=== PATIENT | male | born 1935 | race Caucasian/White ===

== ENCOUNTER 2016-07-22 16:33 | Emergency (ER) | payer MEDICARE, OTHER ==
[2016-07-22] MEDS ORDERED: LIDOCAINE 2% URO-JET 5 ML SYRINGE UR STA (16:57)
[2016-07-22] MEDS ORDERED: LIDOCAINE 2% URO-JET 5 ML SYRINGE UR ONE (16:59)
[2016-07-22] MEDS ORDERED: CIPROFLOXACIN 250 MG TABLET PO STA (17:58)
[2016-07-22] MEDS ORDERED: CIPROFLOXACIN 250 MG TABLET PO ONE (18:10)
== END 2016-07-22 18:32 | disposition home or self-care (01) ==
DX: T83.518A Infection and inflammatory reaction due to other urinary catheter, initial encounter (principal); Y84.6 Urinary catheterization as the cause of abnormal reaction of the patient, or of later complication, without mention of misadventure at the time of the procedure; Z90.79 Acquired absence of other genital organ(s)
CPT/HCPCS: 51702; 51798; 81001; 87077; 87086; 87181; 99283; A9270

== ENCOUNTER 2016-11-29 15:49 | Outpatient (CLI) | payer MEDICARE, OTHER | END 2016-11-29 15:50 | disposition home or self-care (01) | LOC: LAB.R 15:49 | PROVIDERS: ATTEND Family Medicine | DX: N39.0 Urinary tract infection, site not specified (principal) | CPT/HCPCS: 87086 ==

== ENCOUNTER 2017-07-15 08:00 | Outpatient (CLI) | payer MEDICARE, OTHER ==
[2017-07-15 13:22] LABS: CALCIUM 8.9 mg/dL (8.5-10.3); CREATININE 1.6 mg/dL (0.6-1.2)
== END 2017-07-15 08:01 | disposition home or self-care (01) ==
LOC: LAB.WCP 08:00
PROVIDERS: ATTEND Family Medicine
DX: N18.3 Chronic kidney disease, stage 3 (moderate) (principal)
CPT/HCPCS: 36415; 80048

== ENCOUNTER 2017-07-22 14:00 | Outpatient (CLI) | payer MEDICARE, OTHER ==
[2017-07-22 18:50] LABS: BILIRUBIN,URINE NEGATIVE (NEGATIVE); CLARITY,URINE CLEAR (CLEAR); GLUCOSE, URINE (UA) NEGATIVE (NEGATIVE); KETONES,URINE (UA) NEGATIVE (NEGATIVE); LEUKOCYTE ESTERASE, URINE NEGATIVE (NEGATIVE); NITRITE,URINE NEGATIVE (NEGATIVE); OCCULT BLOOD,URINE NEGATIVE (NEGATIVE); PROTEIN,URINE NEGATIVE (NEGATIVE); UROBILINOGEN,URINE 0.2 (NORMAL) E.U./dL (NORMAL)
[2017-07-22 19:09] LABS: BACTERIA,URINE None Seen /HPF (None Seen); RBC,URINE None Seen /HPF (0-5); SQUAMOUS EPITHELIAL CELL,UR NONE SEEN (<= Few)
== END 2017-07-22 14:01 ==
LOC: LAB.WCP 14:00
PROVIDERS: ATTEND Family Medicine
DX: N18.3 Chronic kidney disease, stage 3 (moderate) (principal)
CPT/HCPCS: 81001

== ENCOUNTER 2017-10-09 21:48 | Outpatient (CLI) | payer MEDICARE, OTHER ==
--- NOTE | 2017-10-09 23:57 | Ultrasound Preliminary Report ---
Exam: US DUPLEX EXT VEINS BILATERAL IMPRESSION: 1. No evidence for deep venous thrombosis bilaterally. 2. There are apparent 2 heterogeneous fluid collections about the left calf within the subcutaneous t issues measuring up to 7.8 cm. These may represent hematoma in the appropriate clinical setting. Plea se correlate clinically. RADIA The call report notification system was initiated by Dr. Gary Cobos at 23:46 hrs on 10/09/17. The above findings were discussed with Dr Zeus Quiroz Dr by Dr. Gary Cobos at 23:56 hrs on . SITE ID: [id number]
--- NOTE | 2017-10-10 00:01 | Ultrasound Report ---
EXAM: BILATERAL LOWER EXTREMITY VENOUS ULTRASOUND EXAM DATE: 10/09/2017 10:53 PM. CLINICAL HISTORY: Calf pain, left. COMPARISON: None. TECHNIQUE: Real-time sonographic vascular imaging was performed by the site reliability engineer through the lower extremities utilizing both color-flow and Doppler spectral analysis. Multiple outside sales account representative static i mages were saved for review. FINDINGS: Right: Common Femoral Vein (CFV): No evidence of thrombus. CFV-GSV Junction: No evidence of thrombus. Profunda Femoral Vein (PFV): No evidence of thrombus. Femoral Vein (FV) Prox: No evidence of thrombus. Femoral Vein (FV) Mid: No evidence of thrombus. Femoral Vein (FV) Dist: No evidence of thrombus. Popliteal Vein: No evidence of thrombus. Posterior Tibial Veins: No evidence of thrombus. Peroneal Veins: No evidence of thrombus. Left: Common Femoral Vein (CFV): No evidence of thrombus. CFV-GSV Junction: No evidence of thrombus. Profunda Femoral Vein (PFV): No evidence of thrombus. Femoral Vein (FV) Prox: No evidence of thrombus. Femoral Vein (FV) Mid: No evidence of thrombus. Femoral Vein (FV) Dist: No evidence of thrombus. Popliteal Vein: No evidence of thrombus. Posterior Tibial Veins: No evidence of thrombus. Peroneal Veins: No evidence of thrombus. Other: There is a heterogeneous collection within the medial aspect of the left distal lower extremit y, at the calf level, measuring 7.8 x 1.6 cm. Additional heterogeneous 3.9 x 2.4 x 1.4 cm proximal me dial left calf collection. IMPRESSION: 1. No evidence for deep venous thrombosis bilaterally. 2. There are apparent 2 heterogeneous fluid collections about the left calf within the subcutaneous t issues measuring up to 7.8 cm. These may represent hematoma in the appropriate clinical setting. Plea se correlate clinically. RADIA The call report notification system was initiated by Dr. Gary Cobos at 23:46 hrs on 10/09/17. The above findings were discussed with Dr Zeus Quiroz Dr by Dr. Gary Cobos at 23:56 hrs on . Referring Provider Line: [phone] SITE ID: [id number]
== END 2017-10-09 21:49 | disposition home or self-care (01) ==
LOC: DI 21:48
PROVIDERS: ATTEND Family Medicine
DX: M79.662 Pain in left lower leg (principal)
CPT/HCPCS: 93970

== ENCOUNTER 2018-05-27 08:00 | Outpatient (CLI) | payer MEDICARE, OTHER ==
[2018-05-27 20:36] LABS: CALCIUM 9.4 mg/dL (8.5-10.3); CREATININE 1.4 mg/dL (0.6-1.2)
== END 2018-05-27 23:59 | disposition home or self-care (01) ==
LOC: LAB.WCP 08:00
PROVIDERS: ATTEND Family Medicine
DX: N18.3 Chronic kidney disease, stage 3 (moderate) (principal)
CPT/HCPCS: 36415; 80048

== ENCOUNTER 2019-01-12 08:00 | Outpatient (CLI) | payer MEDICARE, OTHER ==
[2019-01-12 12:38] LABS: BASOPHILS # (AUTO) 0.1 10^3/uL (0.0-0.1); EOSINOPHILS # (AUTO) 0.2 10^3/uL (0.0-0.7); EOSINOPHILS % (AUTO) 3.3 %; HGB - HEMOGLOBIN 13.9 g/dL (14.0-18.0); LYMPHOCYTES % (AUTO) 19.8 %; MEAN CORPUSCULAR HEMOGLOBIN 30.9 pg (27.0-31.0); MEAN CORPUSCULAR HGB CONC 32.1 g/dL (32.0-36.0); MEAN CORPUSCULAR VOLUME 96.2 fL (80.0-94.0); MONOCYTES # (AUTO) 0.5 10^3/uL (0.0-1.0); MONOCYTES % (AUTO) 10.1 %; NEUTROPHILS # (AUTO) 3.2 10^3/uL (1.5-6.6); NEUTROPHILS % (AUTO) 65.2 %; PLT - PLATELET COUNT 176 10^3/uL (130-450); RED CELL DISTRIBUTION WIDTH 14.4 % (12.0-15.0); WHITE BLOOD COUNT 4.8 x10^3/uL (4.8-10.8)
[2019-01-12 13:13] LABS: ALBUMIN 3.9 g/dL (3.2-5.5); ALBUMIN/GLOBULIN RATIO 1.8 (1.0-2.2); ALKALINE PHOSPHATASE 48 IU/L (42-121); ALT ALANINE AMINOTRANSFERASE 13 IU/L (10-60); AST ASPARTATE AMINOTRANSFERASE 22 IU/L (10-42); BILIRUBIN,TOTAL 1.1 mg/dL (0.2-1.0); BUN - BLOOD UREA NITROGEN 21 mg/dL (6-20); CARBON DIOXIDE - CO2 23 mmol/L (21-32); CHLORIDE 101 mmol/L (101-111); CHOL/HDL RATIO 3.6 (<5.0); CHOLESTEROL 230 mg/dL; CREATININE 1.4 mg/dL (0.6-1.2); GFR - MDRD 49 (>89); GLUCOSE 87 mg/dL (70-100); HDL CHOLESTEROL 64 mg/dL; LDL CHOLESTEROL,CALCULATED 153 mg/dL; LDL/HDL RATIO 2.4 (<3.6); SODIUM 137 mmol/L (135-145); TOTAL PROTEIN 6.1 g/dL (6.7-8.2); VLDL CHOLESTEROL 13 mg/dL
[2019-01-12 13:28] LABS: PLATELET ESTIMATE, MANUAL NORMAL (130-450,000) (NORMAL); PLATELET MORPHOLOGY RARE GIANT PLATELETS (NORMAL); RBC MORPHOLOGY (MULTIPLE) NORMAL APPEARANCE (NORMAL)
== END 2019-01-12 23:59 ==
LOC: LAB.WCP 08:00
PROVIDERS: ATTEND Family Medicine
DX: N18.3 Chronic kidney disease, stage 3 (moderate) (principal); E78.5 Hyperlipidemia, unspecified
CPT/HCPCS: 36415; 80053; 80061; 83721; 85025

== ENCOUNTER 2022-03-04 10:03 | Outpatient (CLI) | payer MEDICARE, OTHER | END 2022-03-04 10:04 | disposition EMS.NT | LOC: EMS 10:03 | DX: S00.501A Unspecified superficial injury of lip, initial encounter (principal); W18.30XA Fall on same level, unspecified, initial encounter; Y92.39 Other specified sports and athletic area as the place of occurrence of the external cause ==

== ENCOUNTER 2024-01-18 14:25 | Emergency (ER) | payer MEDICARE, OTHER ==
[2024-01-18] MEDS: SODIUM CHLORIDE 0.9% 1,000 ML IV STA (15:30)
[2024-01-18 16:19] LABS: BASOPHILS # (AUTO) 0.1 10^3/uL (0.0-0.1); BASOPHILS % (AUTO) 1.5 %; EOSINOPHILS # (AUTO) 0.3 10^3/uL (0.0-0.7); EOSINOPHILS % (AUTO) 4.8 %; HGB - HEMOGLOBIN 12.9 g/dL (14.0-18.0); LYMPHOCYTES % (AUTO) 19.2 %; MEAN CORPUSCULAR HEMOGLOBIN 31.6 pg (27.0-31.0); MEAN CORPUSCULAR HGB CONC 33.1 g/dL (32.0-36.0); MEAN CORPUSCULAR VOLUME 95.6 fL (80.0-94.0); MEAN PLATELET VOLUME 11.1 fL (7.4-11.4); MONOCYTES # (AUTO) 0.6 10^3/uL (0.0-1.0); MONOCYTES % (AUTO) 11.2 %; NEUTROPHILS # (AUTO) 3.3 10^3/uL (1.5-6.6); NEUTROPHILS % (AUTO) 62.9 %; PLT - PLATELET COUNT 148 10^3/uL (130-450); RED BLOOD COUNT 4.08 10^6/uL (4.70-6.10); RED CELL DISTRIBUTION WIDTH 14.6 % (12.0-15.0); WHITE BLOOD COUNT 5.3 x10^3/uL (4.8-10.8)
[2024-01-18 16:45] LABS: ALBUMIN/GLOBULIN RATIO 2.2 (1.0-2.2); BILIRUBIN,TOTAL 0.6 mg/dL (0.2-1.0); CALCIUM 9.1 mg/dL (8.5-10.3); CREATININE 1.7 mg/dL (0.6-1.3); POTASSIUM 4.1 mmol/L (3.5-4.5); TOTAL PROTEIN 5.8 g/dL (6.4-8.9)
--- NOTE | 2024-01-18 16:52 | CT Report ---
PROCEDURE: Head WO INDICATIONS: L sided weakness TECHNIQUE: Noncontrast 4.5 mm thick angled axial sections acquired from the foramen magnum to the vertex. For r adiation dose reduction, the following was used: automated exposure control, adjustment of mA and/or kV according to patient size. COMPARISON: 01/08/2013. FINDINGS: Image quality: Excellent. CSF spaces: Basal cisterns are patent. No extra-axial fluid collections. Ventricles are normal in size and shape. Brain: No midline shift. No intracranial masses or hemorrhage. Donald-white matter interface is norm al. Skull and face: Calvarium and visualized facial bones are intact, without suspicious lesions. Sinuses: Mucosal thickening in dependent portion of left maxillary sinus. Bilateral mastoid air cells are well aerated. IMPRESSION: No acute intracranial pathology. Reviewed by: Fidel Cantrell MD on 01/18/2024 4:51 PM PDT Approved by: Fidel Cantrell MD on 01/18/2024 4:51 PM PDT Station ID: [id number]
[2024-01-18] MEDS ORDERED: iohexoL-300 100 ML VIAL ONE (17:00)
[2024-01-18] MEDS: iohexoL-300 100 ML VIAL IVP ONE (17:19)
--- NOTE | 2024-01-18 18:08 | ED Physician Documentation ---
History of Present Illness - Stated complaint Stated Complaint: LT SIDE/LEG/ARM OFF BALANCE - Chief complaint Chief Complaint: Neuro - History obtained from History obtained from: Patient, Family, EMS - Additonal information Additional information: The patient comes to the emergency department chief complaint of intermittent left lower extremity weakness that started this morning after a car ride to [place]. The patient states that he went to bed feeling fine last night and got up this morning feeling normally. He states that he felt normal all the way to [place] during which time he was doing all the driving. He did not have any weakness that he noticed when using his arms. He did not have any visual changes or facial droop. His is with him and verifies that she did not notice anything abnormal in his face. The patient states that when he went to get out of the car when they arrived in [place], he felt as though his left leg was weak. When he got up to walk, he could walk but felt a little "wobbly". As he walked around [place], he felt as though his Yousef his leg improved. He denies any back or hip pain or any sensory deficit at all since onset of symptoms. The patient states that they then went to eat breakfast and that after he had been sitting down for the meal, when they got up to leave, he noticed a recurrence of some of the weakness in his left leg. After walking around for a while, this seemed to improve almost to baseline. They then got in the car to drive back home and when they got home, the patient states that his leg felt somewhat weak again and that he felt a little off balance because of that. However, after being home for an hour or so and being up on his feet, his reports that he told her that he could walk without feeling off balance and that his leg felt back to his normal strength. However, they felt that they should come get it checked out since it kept happening over and over again. The patient states this is never happened to him before. 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 However, he is not having any more pain than usual. He is not known to have a history of sciatica. He has no history of A-fib. He does not take any aspirin or any anticoagulation. He denies any head injury or back injury recently. No injury to his lower extremity. No other complaints at this time. PD PAST MEDICAL HISTORY - Past Medical History Cardiovascular: High cholesterol GI: GERD - Past Surgical History Past Surgical History: Yes - Present Medications Home Medications: Ambulatory Orders Medication Instructions Recorded Confirmed Ciprofloxacin HCl [Cipro] 500 mg PO BID #14 tablet 07/22/16 LORazepam [Lorazepam Intensol] 0.5 ml PO QPM PRN #10 ml 07/22/16 - Allergies Allergies/Adverse Reactions: Allergies Allergy/AdvReac Type Severity Reaction Status Date / Time No Known Drug Allergies Allergy Verified 01/18/24 15:23 - Social History Does the pt smoke?: No Smoking Status: Never smoker Does the pt drink ETOH?: No Does the pt have substance abuse?: No - Immunizations Immunizations are current?: Yes - POLST Patient has POLST: No PD ED PE NORMAL - Vitals Vital signs reviewed: Yes - General General: Alert and oriented X 3, No acute distress, Well developed/nourished - HEENT HEENT: Atraumatic, PERRL, EOMI, Moist mucous membranes - Neck Neck: Supple, no meningeal sign - Cardiac Cardiac: RRR, No murmur - Respiratory Respiratory: No respiratory distress, Clear bilaterally - Abdomen Abdomen: Soft, Non tender, Non distended - Back Back: No spinal TTP - Derm Derm: Normal color, Warm and dry, No rash - Extremities Extremities: No deformity, No edema - Neuro Neuro: Alert and oriented X 3, communication lecturer 2-12 intact, No motor deficit, No sensory deficit, Normal speech, Other (Equal strength bilateral upper and lower extremities. Usdh-cd-[id number] test normal bilateral lower extremities.) - Psych Psych: Normal mood, Normal affect Results - Vitals Vitals: Vital Signs - 24 hr 01/18/24 01/18/24 14:44 16:54 Temperature 36.7 C Heart Rate 64 52 L Respiratory 18 18 Rate Blood Pressure 145/69 H 159/70 H O2 Saturation 97 96 Oxygen O2 Source Room air - EKG (time done) 1457 EKG releavant findings:: EKG personally interpreted by author of this note. Relevant findings are: Rate: Rate (enter#) (55) Rhythm: Sinus bradycardia, NSR [place]: LAD Intervals: Normal LA QRS: Normal Ischemia: Normal ST segments, Non specific changes Compare to prior EKG: Old EKG unavailable Computer interpretation: Agree with computer - Labs Labs: Laboratory Tests 01/18/24 01/18/24 15:23 15:23 WBC 5.3 RBC 4.08 L Hgb 12.9 L Hct 39.0 L MCV 95.6 H MCH 31.6 H MCHC 33.1 RDW 14.6 Plt Count 148 MPV 11.1 Neut # (Auto) 3.3 Lymph # (Auto) 1.0 L Alexander # (Auto) 0.6 Eos # (Auto) 0.3 Baso # (Auto) 0.1 Absolute Nucleated RBC 0.00 Nucleated RBC % 0.0 Sodium 135 Potassium 4.1 Chloride 105 Carbon Dioxide 24 Anion Gap 6.0 BUN 26 H Creatinine 1.7 H Estimated GFR (MDRD) 38 L Glucose 142 H Calcium 9.1 Total Bilirubin 0.6 AST 18 ALT 10 Alkaline Phosphatase 49 Total Protein 5.8 L Albumin 4.0 Globulin 1.8 L Albumin/Globulin Ratio 2.2 Lipase 24 - Rads (name of study) Head CT Relevant Findings:: Final report received, See rad report (No acute findings.) CTA head/neck Relevant Findings:: Final report received, See rad report PD Medical Decision Making - ED course Complexity details: reviewed results, re-evaluated patient, considered diff erential, d/w patient, d/w family ED course: The patient had a waxing and waning symptom course that sounded suspicious for nerve compression going into his left lower extremity. He was reporting escalation of the symptoms after sitting for prolonged periods of time with gradual remittance of symptoms after being up on his feet. This had happened repeatedly throughout the day. The patient did not have any other neurologic symptoms to accompany the waxing and waning left lower extremity weakness. Nonetheless, given his age and lack of history of anything like this before, I felt he should be worked up with CT imaging of his head. The noncontrast CT was performed and found to be negative. His laboratory studies showed a normal white blood cell count and only slightly decreased hemoglobin. BUN was found to be 26 and creatinine 1.7 with a GFR of 38. Patient's glucose was 142. I did order a liter of 0.9 normal saline for the patient, as I felt his noncontrast CT should be followed up with a CT angiogram. CTA was done and is negative. He has been given aspirin and Decadron. The patient has been stable here and I have discussed with both him and his that I suspect more of a nerve compression picture. I feel the patient is stable for discharge home. However, if there are any unremitting neurologic deficits, then the patient should come back for reevaluation. We have discussed the need for follow-up and the utility of taking a daily aspirin for prevention. Departure - Departure Clinical Impression: Radiculopathy of leg Lower extremity weakness Qualifiers: Laterality: left Qualified Code(s): R29.898 - Other symptoms and signs involving the musculoskeletal system Condition: Stable Instructions: Lumbar Radiculopathy Comments: Your CT scans all look good. There is no evidence of any blockage in the circulation to your brain or there are any abnormality of your brain that is showing up at this time. Your symptoms are most consistent with compression of your nerve as it either comes from your back to your leg or goes through your buttock. This is supported by the fact that the symptoms seem to be worse after you have been sitting for prolonged period of time and seem to improve the longer you are up. If you develop weakness in one side of your body or in one arm or leg that is not dependent on position and that persists regardless, or if you develop facial droop, or difficulty speaking or swallowing, or any acute visual changes, you should return to the emergency department immediately. I probably would not be a bad idea for you to take an aspirin once a day for preventative purposes. If you continue to have problems with your leg being intermittently weak, please talk to your primary doctor about whether or not you should have an MRI of your low spine to see if the nerves are getting compressed as they come out. Please call first thing tomorrow to make a follow-up appointment with your doctor.
--- NOTE | 2024-01-18 18:18 | CT Report ---
PROCEDURE: Angio Head/Neck INDICATIONS: L leg weakness TECHNIQUE: After the administration of intravenous contrast, 1 mm thick sections acquired from the aortic arch t hrough the [place]. 3-dimensional mahbzjm-ruyqmlttg-ntbnqbwmkm (MIP) and/or volume renderin g reformats were acquired of the central intracranial vasculature and neck separately. For radiation dose reduction, the following was used: automated exposure control, adjustment of mA and/or kV acco rding to patient size. CONTRAST: 80ml omni 300 COMPARISON: CT head stated a 10/07 and 01/08/2013. FINDINGS: Image quality: Diagnostic. HEAD CT: CSF Spaces: Basal cisterns are patent. No extra-axial fluid collections. Ventricles are normal in size and shape. Brain: No significant abnormality is seen for scanning technique. Skull and face: Calvarium and visualized facial bones appear intact, without suspicious lesions. Sinuses: Visualized sinuses and mastoids are clear. HEAD CT ANGIOGRAPHY: Anterior circulation: Intracranial internal carotid arteries are normal in size and flow. The flow within the paired anterior cerebral arteries is normal and symmetric. The flow within the middle cer ebral arteries is normal and symmetric. The anterior communicating artery is seen. No aneurysms are seen. Posterior circulation: Visualized portions of the vertebral arteries demonstrate normal caliber, and join to form a normal appearing basilar artery. Flow within the posterior cerebral arteries is norm al and symmetric. No aneurysms are seen. NECK CT ANGIOGRAPHY: Carotid system: The great vessels demonstrate a conventional anatomy as they arise from the aortic a rch. The origins of the common carotid arteries appear patent. The common carotid arteries demonstr ate normal caliber and courses. The bifurcation regions are both widely patent. The internal caroti d arteries demonstrate normal calibers and courses. Posterior circulation: The origins of the vertebral arteries both appear widely patent. The more young perior extracranial portions of both vertebral arteries also demonstrate normal courses and calibers. They join to form a normal appearing basilar artery. Soft tissues: Visualized neck soft tissues demonstrate no suspicious abnormalities. Bones: No suspicious bony lesions. Visualized cervical spine appears normally aligned. IMPRESSION: No significant intracranial arterial abnormality is seen. No significant abnormality is seen within the arteries of the neck. The estimate of stenosis included in the report of the imaging study was calculated using the NASCET method Reviewed by: Fidel Cantrell MD on 01/18/2024 6:16 PM PDT Approved by: Fidel Cantrell MD on 01/18/2024 6:16 PM PDT Station ID: [id number]
[2024-01-18 18:25] VITALS: BP 156/67; O2SAT 97
[2024-01-18] MEDS: ASPIRIN CHEW 81 MG TABLET PO STA (18:27)
[2024-01-18] MEDS: DEXAMETHASONE 10 MG/ML VIAL IVP STA (18:27)
== END 2024-01-18 18:52 | disposition home or self-care (01) ==
LOC: ED 14:25
DX: M54.16 Radiculopathy, lumbar region (principal); E78.00 Pure hypercholesterolemia, unspecified; K21.9 Gastro-esophageal reflux disease without esophagitis
CPT/HCPCS: 36415; 70450; 70496; 70498; 80053; 83690; 85025; 96374; 99284; A9270; Q9967